=== PATIENT | female | born 1945 | race Two or more races ===

== ENCOUNTER 2017-12-04 20:02 | Inpatient (IN) | payer MEDICARE, OTHER ==
[~2017-12-04] VITALS: Ht 154.9 cm; Wt 97.7 kg
[2017-12-04] MEDS ORDERED: UNOBMED (20:24)
[2017-12-04] MEDS ORDERED: Sodium Chloride 500ML 500 ML IV ONE (21:15)
[2017-12-04] MEDS ORDERED: Azithromycin 500 MG in NS 275 ML IV ONE (21:15)
[2017-12-04 22:00] VITALS: BP 136/60
[2017-12-04] MEDS ORDERED: Albuterol/Ipratropium 3ml neb HHN ONE (22:00)
[2017-12-04 23:00] VITALS: BP 140/68
[2017-12-04 23:00] LABS: HEMATOCRIT 40.7 % (37.0-47.0); HEMOGLOBIN 13.4 G/DL (12.0-16.0); MEAN CORPUSCULAR VOLUME 87 FL (80-99); PLATELET COUNT 238 K/UL (150-450); RED BLOOD COUNT 4.67 M/UL (4.20-5.40); RED CELL DISTRIBUTION WIDTH 12.3 % (11.6-14.8); WHITE BLOOD COUNT 15.5 K/UL (4.8-10.8)
[2017-12-04 23:08] LABS: ANION GAP 6 mmol/L (5-15); BLOOD UREA NITROGEN 20 mg/dL (7-18); CALCIUM 8.9 MG/DL (8.5-10.1); CARBON DIOXIDE 26 MMOL/L (21-32); CHLORIDE 101 MMOL/L (98-107); SODIUM 133 MMOL/L (136-145)
[2017-12-04 23:19] LABS: ALANINE AMINOTRANSFERASE 32 U/L (12-78); ALBUMIN 3.6 G/DL (3.4-5.0); ALBUMIN/GLOBULIN RATIO 0.8 (1.0-2.7); ALKALINE PHOSPHATASE 85 U/L (46-116); ASPARTATE AMINO TRANSFERASE 22 U/L (15-37); BILIRUBIN,TOTAL 0.5 MG/DL (0.2-1.0)
[2017-12-04] MEDS ORDERED: Ampicillin/Sulbactam Sod 3 GM in NS 110 ML IVPB ONE (23:30)
--- NOTE | 2017-12-04 23:36 | Emergency Room Report ---
History of Present Illness General Chief Complaint: Difficulty breathing Source: Patient Present Illness HPI Patient is a 72-year-old female who presented after increased fever and chills. The patient reported having increased productive cough. Patient has a relative in the hospital currently with pneumonia. The patient states she been having increased sore throat. She had been having productive cough with the produced productive of yellow sputum. The patient not been having any hemoptysis. The patient about denied vomiting or diarrhea. She had prior history of bronchitis. Patient is not a smoker. Allergies: Coded Allergies: No Known Allergies (Unverified , 12/04/17) Patient History Past Medical History: see triage record Last Menstrual Period: NA Reviewed Nursing Documentation: PMH: Agreed; PSxH: Agreed Nursing Documentation-PMH Hx Hypertension: Yes - hyperlipidemia Hx Diabetes: Yes Review of Systems All Other Systems: negative except mentioned in HPI Physical Exam Vital Signs Date Time Temp Pulse Resp B/P (MAP) Pulse Ox O2 Delivery O2 Flow Rate FiO2 12/04/17 20:19 101.2 110 18 114/60 98 Room Air 101.1 12/04/17 22:00 3.0 12/04/17 22:12 21 Sp02 EP Interpretation: reviewed, normal General Appearance: alert, obese, Chronically Ill Head: atraumatic ENT: normal ENT inspection, hearing grossly normal, normal voice Neck: normal inspection, supple, no bony tend, limited range of motion Respiratory: normal inspection, no retraction, rhonchi, wheezing Cardiovascular #1: no edema, tachycardia Gastrointestinal: normal inspection, normal bowel sounds, non tender, soft, no guarding, no hernia Genitourinary: no CVA tenderness Musculoskeletal: normal inspection, back normal, normal range of motion Neurologic: normal inspection, alert, oriented x3, responsive, administrative operations coordinator III-XII nml as tested, speech normal Psychiatric: normal inspection, judgement/insight normal, mood/affect normal Skin: normal inspection, normal color, no rash Medical Decision Making Diagnostic Impression: Primary Impression: Pneumonia Additional Impression: Tachycardia ER Course Patient presented for cough . Differential diagnosis included but was not limited to acute coronary syndrome, pulmonary embolism, pneumonia, aortic dissection, shingles, pneumothorax, aortic dissection, esophageal rupture, pericarditis. Because of complexity of patient's case laboratory testing and imaging studies were ordered. The patient noted to have 102 fever as well as productive cough. This consistent with pneumonia. A chest x-ray one view interpreted by me showed the right middle lobe infiltrate. The patient noted not to be hypoxic however she have persistently tachycardic. The patient was given breathing treatment with some improvement in air movement. Dr. Jero Haider was contacted for inpatient management due to primary care physician. Labs Test 12/04/17 21:40 White Blood Count 15.5 K/UL (4.8-10.8) Red Blood Count 4.67 M/UL (4.20-5.40) Hemoglobin 13.4 G/DL (12.0-16.0) Hematocrit 40.7 % (37.0-47.0) Mean Corpuscular Volume 87 FL (80-99) Mean Corpuscular Hemoglobin 28.7 PG (27.0-31.0) Mean Corpuscular Hemoglobin Concent 32.9 G/DL (32.0-36.0) Red Cell Distribution Width 12.3 % (11.6-14.8) Platelet Count 238 K/UL (150-450) Mean Platelet Volume 6.6 FL (6.5-10.1) Neutrophils (%) (Auto) % (45.0-75.0) Lymphocytes (%) (Auto) % (20.0-45.0) Monocytes (%) (Auto) % (1.0-10.0) Eosinophils (%) (Auto) % (0.0-3.0) Basophils (%) (Auto) % (0.0-2.0) Sodium Level 133 MMOL/L (136-145) Potassium Level 4.0 MMOL/L (3.5-5.1) Chloride Level 101 MMOL/L (98-107) Carbon Dioxide Level 26 MMOL/L (21-32) Anion Gap 6 mmol/L (5-15) Blood Urea Nitrogen 20 mg/dL (7-18) Creatinine 1.0 MG/DL (0.55-1.30) Estimat Glomerular Filtration Rate 54.8 mL/min (>60) Glucose Level 257 MG/DL (74-106) Calcium Level 8.9 MG/DL (8.5-10.1) Total Bilirubin 0.5 MG/DL (0.2-1.0) Aspartate Amino Transf (AST/SGOT) 22 U/L (15-37) Alanine Aminotransferase (ALT/SGPT) 32 U/L (12-78) Alkaline Phosphatase 85 U/L (46-116) Pro-B-Type Natriuretic Peptide 131 pg/mL (0-125) Total Protein 8.0 G/DL (6.4-8.2) Albumin 3.6 G/DL (3.4-5.0) Globulin 4.4 g/dL Albumin/Globulin Ratio 0.8 (1.0-2.7) EKG Diagnostic Results Rate: tachycardiac - 111 Rhythm: NSR ST Segments: no acute changes Rhythm Strip Diag. Results EP Interpretation: yes Rhythm: NSR - 102, no PVC's, no ectopy Last Vital Signs Date Time Temp Pulse Resp B/P (MAP) Pulse Ox O2 Delivery O2 Flow Rate FiO2 12/04/17 23:00 99.5 102 22 140/68 96 Room Air 3.0 21 99.5 Status: unchanged Disposition: ADMITTED INPATIENT Condition: Serious Referrals: Jero Haider MD (PCP) Michael Bruno MD Dec 04, 2017 23:36
[2017-12-05] VITALS: BP 136/68
[2017-12-05 01:00] VITALS: BP 128/70
[2017-12-05 01:45] VITALS: BP 122/51
[2017-12-05 04:00] VITALS: BP 131/72
[2017-12-05 05:26] LABS: APPEARANCE,URINE CLEAR; BILIRUBIN, URINE NEGATIVE (NEGATIVE); GLUCOSE, URINE (UA) 4+ (NEGATIVE); KETONES,URINE NEGATIVE (NEGATIVE); LEUKOCYTE ESTERASE ,URINE NEGATIVE (NEGATIVE); NITRITE,URINE NEGATIVE (NEGATIVE); PH,URINE 5 (4.5-8.0); PROTEIN,URINE 1+ (NEGATIVE); UROBILINOGEN,URINE NORMAL MG/DL (0.0-1.0)
[2017-12-05 05:59] LABS: COLOR,URINE YELLOW
[2017-12-05] MEDS: NovoLOG Insulin Flexpen SUBQ SCH ×4 (06:04→20:42)
[2017-12-05 07:42] LABS: BASOPHILS % (AUTO) 0.3 % (0.0-2.0); EOSINOPHILS % (AUTO) 0.2 % (0.0-3.0); HEMOGLOBIN 12.1 G/DL (12.0-16.0); LYMPHOCYTES % (AUTO) 9.9 % (20.0-45.0); MEAN CORPUSCULAR VOLUME 89 FL (80-99); MONOCYTES % (AUTO) 6.3 % (1.0-10.0); NEUTROPHILS % (AUTO) 83.4 % (45.0-75.0); PLATELET COUNT 239 K/UL (150-450); RED BLOOD COUNT 4.16 M/UL (4.20-5.40); RED CELL DISTRIBUTION WIDTH 11.8 % (11.6-14.8); WHITE BLOOD COUNT 12.5 K/UL (4.8-10.8)
[2017-12-05 08:22] LABS: ALANINE AMINOTRANSFERASE 27 U/L (12-78); ALBUMIN 2.9 G/DL (3.4-5.0); ALBUMIN/GLOBULIN RATIO 0.7 (1.0-2.7); ALKALINE PHOSPHATASE 69 U/L (46-116); ANION GAP 8 mmol/L (5-15); ASPARTATE AMINO TRANSFERASE 16 U/L (15-37); BILIRUBIN,TOTAL 0.6 MG/DL (0.2-1.0); BLOOD UREA NITROGEN 18 mg/dL (7-18); CALCIUM 8.2 MG/DL (8.5-10.1); CARBON DIOXIDE 29 MMOL/L (21-32); CHLORIDE 104 MMOL/L (98-107); CREATININE 0.9 MG/DL (0.55-1.30); POTASSIUM 3.7 MMOL/L (3.5-5.1); SODIUM 140 MMOL/L (136-145)
--- NOTE | 2017-12-05 09:47 | Consultation ---
Consult Note Assessment/Plan DICT # [id number] Matias Mccray MD Dec 05, 2017 09:47
[2017-12-05] MEDS: Heparin 5000 units/ml inj SUBQ SCH ×2 (10:01→20:41)
[2017-12-05] MEDS ORDERED: guaiFENesin 100mg/5ml Liq ud ORAL PRN (10:30)
--- NOTE | 2017-12-05 11:37 | Diagnostic Imaging Report ---
Indication: Dyspnea Comparison: None A single view chest radiograph was obtained. Findings: Lung volumes are low. There is atelectasis at the left lung base. Heart size is normal. The bones are slightly osteopenic. IMPRESSION: Limited study due to low lung volumes. Left basal atelectasis
[2017-12-05] MEDS ORDERED: FOLIC ACID0.4 MG ORAL (13:22)
[2017-12-05] MEDS ORDERED: NORVASC5 MG ORAL (13:23)
[2017-12-05] MEDS ORDERED: VITAMIN D250000 UNI1 ORAL (13:26)
[2017-12-05] MEDS ORDERED: AMARYL2 MG ORAL (13:30)
[2017-12-05] MEDS ORDERED: FUROSEMIDE40 MG/5 ML ORAL (13:31)
[2017-12-05] MEDS ORDERED: METFORMIN HCL750 MG ORAL (13:32)
[2017-12-05] MEDS ORDERED: METOPROLOL SUCC50 MG ORAL (13:35)
[2017-12-05] MEDS ORDERED: ASPIR 8181 MG ORAL (13:35)
[2017-12-05] MEDS ORDERED: K-DUR10 ME1 ORAL (13:36)
[2017-12-05] MEDS ORDERED: SIMVASTATIN40 MG ORAL (13:37)
[2017-12-05] MEDS ORDERED: FUROSEMIDE20 M1 ORAL (13:47)
[2017-12-05] MEDS ORDERED: Aspirin Baby 81mg ORAL SCH (15:00)
[2017-12-05] MEDS ORDERED: Metoprolol Succinate XL 50mg tab ORAL SCH (15:00)
--- NOTE | 2017-12-05 17:30 | Consultation ---
DATE OF CONSULTATION: 12/05/2017 PULMONARY CONSULTATION CONSULTING PHYSICIAN: Matias Mccray M.D. REFERRING PHYSICIAN: Jero Haider M.D. REASON FOR CONSULTATION: Pneumonia. HISTORY OF PRESENT ILLNESS: The patient is a 72-year-old female with a history of morbid obesity, severe YOMI, congestive heart failure, diastolic dysfunction, left renal cell carcinoma status post nephrectomy, diabetes, hypertension, hyperlipidemia, gastroesophageal reflux disease, and a questionable history of sick sinus syndrome, last seen by me in the office in 2015, who presented overnight to the ER with cough, congestion, and shortness of breath. She has a relative, who has recently been sick. The patient's chest x-ray, which is not available to me, showed a right middle lobe infiltrate and she had a temperature of 102. She was not febrile. She was started on antibiotics and admitted for further management and evaluation. She currently feels well except for her cough. She is less short of breath. Denies any fevers, chills, headaches, or dizziness. She is currently receiving Levaquin and DuoNebs. She received a dose of azithromycin as well for a typicals. Of note, when I last saw her, I titrated her to a BiPAP of 22/15 for her YOMI, but she has not been using that. Her weight today is 97 kilos compared to 100 kilos 2 years ago in my office. PAST MEDICAL HISTORY: 1. Left renal cell carcinoma status post nephrectomy on 11/03/2015. 2. Congestive heart failure with diastolic dysfunction. 3. Diabetes. 4. Hypertension. 5. Hyperlipidemia. 6. GERD. 7. Morbid obesity. 8. Severe YOMI with AHI of 47, status post BiPAP titration of 22/15. 9. Sick sinus syndrome. MEDICATIONS: Prior to admission medications reviewed. Current medications reviewed. ALLERGIES: No known drug allergies. SOCIAL HISTORY: No tobacco, alcohol, or drug use. She has a supportive family. FAMILY HISTORY: Noncontributory. REVIEW OF SYSTEMS: Negative other than history of present illness. PHYSICAL EXAM: VITAL SIGNS: Temperature 99.6, pulse 102, blood pressure 122/51, respiratory rate 20, and saturating 96% on 3 liters. GENERAL: She is an obese female, in no acute distress. Awake, alert, and oriented x3. HEENT: Normocephalic and atraumatic. Oropharynx is clear with moist mucous membranes. NECK: Supple without lymphadenopathy or JVD. CHEST: Clear with scattered coarse breath sounds in right lower lung field. HEART: Regular rate and rhythm. ABDOMEN: Soft, nontender, and nondistended. EXTREMITIES: No cyanosis, clubbing, or edema. ANCILLARY DATA: White count 15.5 on presentation and 12.5 now, hemoglobin 12.1, and platelet count 239,000. Chemistry, sodium 140, potassium 3.7, chloride 104, bicarbonate 29, BUN 18, creatinine 0.9, glucose 170, and calcium 8.2. Total bilirubin 0.6. AST 16, ALT 27, and alkaline phosphatase 69. Urinalysis, 1+ protein, 4+ glucose, and 1+ blood. Chest x-ray per report, right middle lobe infiltrate. My previous records include a CT of the chest from 10/08/2015, which showed a large left renal mass. MRI from September 2015, which showed a large left renal mass compressing on the renal hilum. The last CT scan at [facility] from 06/10/2017 showed no evidence of metastases, stable post-operative changes. PFT's on 12/05/2015, FEV1-FVC ratio 80%, FEV1 1.35 (85%), FVC 1.69 (82%), TLC 3.40 (89%), vital capacity 1.94 (94%), DLCO 17 (91%), DLVA 5.65 (108%). Last PSG on 12/18/2015, severe YOMI with AHI of 47, status post BiPAP titration of . My last echo showed a hyperdynamic LVEF with a fraction of 72% and moderate diastolic dysfunction, wall motion score of 1, PA pressure of 31, and normal RV systolic function. ASSESSMENT: The patient is a 72-year-old morbidly obese patient with a history of severe obstructive sleep apnea with AHI of 47, status post BiPAP titration, noncompliant with BiPAP, congestive heart failure, left renal cell carcinoma, status post nephrectomy, diabetes, hypertension, hyperlipidemia, gastroesophageal reflux disease, and sick sinus syndrome, admitted with right middle lobe infiltrate, likely community-acquired pneumonia. PROBLEM LIST: 1. Right middle lobe infiltrate, likely community-acquired pneumonia. 2. Morbid obesity. 3. Severe obstructive sleep apnea with AHI of 47, status post BiPAP titration of in 2015, noncompliant with . 4. Congestive heart failure with diastolic dysfunction without evidence of decompensated heart failure. 5. Left renal cell carcinoma status post nephrectomy on 11/03/2015. 6. Diabetes. 7. Hypertension. 8. Hyperlipidemia. 9. Gastroesophageal reflux disease. 10. Sick sinus syndrome. TREATMENT PLAN: 1. Optimize pulmonary hygiene/mobilize as tolerated. 2. Titrate down FiO2 to keep saturations greater than 90%. 3. We will start patient on BiPAP for nightly use here in the hospital and we will encourage compliance going forward at home. 4. Agree with Levaquin for empiric treatment of community-acquired pneumonia. 5. Mdulv-urc-loqrc and p.r.n. bronchodilators. 6. Mucinex and p.r.n. Robitussin. 7. Heparin subcutaneous for DVT prophylaxis. 8. Monitor volumes. 9. Continue to encourage weight loss, diet, and exercise. Dr. Haider, thank you for allowing me to assist in the care of your patient. If I may be of any assistance in the future, please do not hesitate to ask. Matias Mccray M.D. DR: NADIA JOB#: [id number] CC:
[2017-12-05] MEDS: guaiFENesin ER 600mg tab ORAL SCH (19:11)
[2017-12-05 20:00] VITALS: BP 133/49
[2017-12-05] MEDS: Atorvastatin 20mg tab ORAL SCH (20:40)
--- NOTE | 2017-12-05 22:28 | History and Physical ---
History of Present Illness General Date patient seen: Dec 05, 2017 Time patient seen: 22:25 Reason for Hospitalization: COUGH, FEVER , TACHYCARDIA Present Illness HPI LEI IS AN UNFORTUANTE FEMALE IWTH DIABETES, HYPERTENISONA DN COUGH Allergies: Coded Allergies: No Known Allergies (Unverified , 12/04/17) Medication History Scheduled Amlodipine Besylate (Norvasc), 5 MG ORAL DAILY, (Reported) Aspirin* (Aspir 81*), 81 MG ORAL DAILY, (Reported) Ergocalciferol (Vitamin D2)* (Vitamin D*), 50,000 UNIT ORAL ONCE A WEEK, ( Reported) Folic Acid (Folic Acid), 1 MG ORAL DAILY, (Reported) Furosemide* (Lasix*), 20 MG ORAL DAILY, (Reported) Glimepiride (Amaryl), 4 MG ORAL BEFORE BREAKFAST, (Reported) Metformin Hcl (Metformin Hcl Er), 750 MG ORAL DAILY, (Reported) Metoprolol Succinate* (Metoprolol Succinate*), 50 MG ORAL DAILY, (Reported) Potassium Chloride (Klor-Con 10), 10 MEQ ORAL DAILY, (Reported) Simvastatin (Zocor), 40 MG ORAL BEDTIME, (Reported) Miscellaneous Medications Unable to Obtain Medications (Unable To Obtain Meds), (Reported) Patient History History Provided By: Patient Healthcare decision maker Resuscitation status Full Code Advanced Directive on File No Review of Systems ROS Narrative HAD FEVER NAD CHILLS WAS NOT FEELING GOOD pmh: dIABETES HYPERTENSION HYPERLIPID OBESE OA KNEE DEG DISC DISEASE RENAL CELL CA psh: p[artial nephrectomy knee replacemnt Physical Exam General Appearance: WD/WN HEENT: normocephalic, no JVD Neck: non-tender Respiratory/Chest: other - rhonchi Cardiovascular/Chest: normal rate, regular rhythm Abdomen: non tender, soft Extremities: other - no clubbing Last 24 Hour Vital Signs Date Time Temp Pulse Resp B/P (MAP) Pulse Ox O2 Delivery O2 Flow Rate FiO2 12/05/17 22:02 88 16 90 12/05/17 20:00 98.4 67 18 133/49 (77) 92 98.4 12/05/17 19:25 85 18 Room Air 21 12/05/17 16:00 68 12/05/17 15:41 68 158/68 12/05/17 15:40 68 154/68 12/05/17 12:00 68 12/05/17 09:00 Room Air 12/05/17 08:00 65 12/05/17 04:00 98.0 86 22 131/72 (91) 98 98.0 12/05/17 04:00 66 12/05/17 02:29 Room Air 12/05/17 02:00 87 12/05/17 01:45 99.1 78 20 122/51 (74) 96 99.1 12/05/17 01:25 99.5 102 22 140/68 96 Room Air 3.0 21 99.5 12/05/17 01:00 99.6 93 22 128/70 96 Room Air 3.0 21 99.6 12/05/17 00:00 99.6 95 22 136/68 96 Room Air 3.0 21 99.6 12/04/17 23:55 99.5 12/04/17 23:00 99.5 102 22 140/68 96 Room Air 3.0 21 99.5 Intake and Output 12/04/17 12/05/17 19:00 07:00 Intake Total 240 ml Balance 240 ml Intake Oral 240 ml # Voids 2 Laboratory Tests Test 12/05/17 07:05 White Blood Count 12.5 K/UL (4.8-10.8) H Red Blood Count 4.16 M/UL (4.20-5.40) L Hemoglobin 12.1 G/DL (12.0-16.0) Hematocrit 37.0 % (37.0-47.0) Mean Corpuscular Volume 89 FL (80-99) Mean Corpuscular Hemoglobin 29.0 PG (27.0-31.0) Mean Corpuscular Hemoglobin Concent 32.7 G/DL (32.0-36.0) Red Cell Distribution Width 11.8 % (11.6-14.8) Platelet Count 239 K/UL (150-450) Mean Platelet Volume 6.9 FL (6.5-10.1) Neutrophils (%) (Auto) 83.4 % (45.0-75.0) H Lymphocytes (%) (Auto) 9.9 % (20.0-45.0) L Monocytes (%) (Auto) 6.3 % (1.0-10.0) Eosinophils (%) (Auto) 0.2 % (0.0-3.0) Basophils (%) (Auto) 0.3 % (0.0-2.0) Sodium Level 140 MMOL/L (136-145) Potassium Level 3.7 MMOL/L (3.5-5.1) Chloride Level 104 MMOL/L (98-107) Carbon Dioxide Level 29 MMOL/L (21-32) Anion Gap 8 mmol/L (5-15) Blood Urea Nitrogen 18 mg/dL (7-18) Creatinine 0.9 MG/DL (0.55-1.30) Estimat Glomerular Filtration Rate > 60 mL/min (>60) Glucose Level 170 MG/DL (74-106) H Calcium Level 8.2 MG/DL (8.5-10.1) L Total Bilirubin 0.6 MG/DL (0.2-1.0) Aspartate Amino Transf (AST/SGOT) 16 U/L (15-37) Alanine Aminotransferase (ALT/SGPT) 27 U/L (12-78) Alkaline Phosphatase 69 U/L (46-116) Total Protein 6.9 G/DL (6.4-8.2) Albumin 2.9 G/DL (3.4-5.0) L Globulin 4.0 g/dL Albumin/Globulin Ratio 0.7 (1.0-2.7) L Height (Feet): 5 Height (Inches): 1.00 Weight (Pounds): 211 Medications Current Medications Medications (Trade) Dose Ordered Sig/Walter Route PRN Reason Start Time Stop Time Status Last Admin Dose Admin Amlodipine Besylate (Norvasc) 5 mg DAILY ORAL 12/06/17 09:00 01/05/18 08:59 Aspirin (ASA) 81 mg DAILY ORAL 12/06/17 09:00 01/05/18 08:59 Atorvastatin Calcium (Lipitor) 20 mg QHS ORAL 12/05/17 21:00 01/04/18 20:59 12/05/17 20:40 Dextrose (Dextrose 50%) 25 ml STAT PRN IV Hypoglycemia 12/05/17 02:15 01/04/18 02:14 Dextrose (Dextrose 50%) 50 ml STAT PRN IV Hypoglycemia 12/05/17 02:15 01/04/18 02:14 Furosemide (Lasix) 20 mg DAILY ORAL 12/08/17 09:00 8/11/18 08:59 Glimepiride (Amaryl) 4 mg ACBREAKFAST ORAL 12/06/17 06:30 01/05/18 06:29 Guaifenesin (Mucinex ER) 600 mg TWICE A DAY ORAL 12/05/17 18:00 01/04/18 17:59 12/05/17 19:11 Guaifenesin (Robitussin) 100 mg Q4H PRN ORAL For Cough 12/05/17 10:30 01/04/18 10:29 Heparin Sodium (Porcine) (Heparin 5000 units/ml) 5,000 units EVERY 12 HOURS SUBQ 12/05/17 09:00 01/04/18 08:59 12/05/17 20:41 Insulin Aspart (NovoLOG) BEFORE MEALS AND HS SUBQ 12/05/17 06:30 01/04/18 06:29 12/05/17 20:42 Levofloxacin 50 ml @ 50 mls/hr Q24H IVPB 12/06/17 04:00 12/12/17 03:59 Metformin HCl (Glucophage) 750 mg TIAC ORAL 12/06/17 06:30 01/05/18 06:29 Metoprolol Succinate (Toprol XL) 50 mg DAILY ORAL 12/06/17 09:00 01/05/18 08:59 Potassium Chloride (K-Dur) 10 meq DAILY ORAL 12/08/17 09:00 01/07/18 08:59 Assessment/Plan Status Narrative CAP HYPERTENISOIN DIABETES HISTORYOF RENAL CELL CA PROTIEN MALNUTRITION OBESITY TACHYCARIDA Assessment/Plan ADMIT IV FLUID IV ANTIBIOTIC ACCUCHECK SLIDING SCALE MONITOR BP AND BLOOD GLUCOSE, Jero Haider MD Dec 05, 2017 22:28
[2017-12-06] VITALS: BP 135/53
[2017-12-06 04:00] VITALS: BP 110/48
[2017-12-06] MEDS: Levofloxacin 250mg/D5W 50ml IVPB SCH (04:10)
[2017-12-06] MEDS: Glimepiride 4mg tab ORAL SCH (05:59)
[2017-12-06] MEDS: metFORMIN 500mg tab ORAL SCH ×3 (06:00→15:51)
[2017-12-06] MEDS: NovoLOG Insulin Flexpen SUBQ SCH ×4 (06:01→20:43)
[2017-12-06 07:41] LABS: BASOPHILS % (AUTO) 0.4 % (0.0-2.0); EOSINOPHILS % (AUTO) 2.8 % (0.0-3.0); HEMATOCRIT 37.6 % (37.0-47.0); HEMOGLOBIN 12.4 G/DL (12.0-16.0); LYMPHOCYTES % (AUTO) 16.7 % (20.0-45.0); MEAN CORPUSCULAR VOLUME 89 FL (80-99); NEUTROPHILS % (AUTO) 73.1 % (45.0-75.0); PLATELET COUNT 245 K/UL (150-450); RED BLOOD COUNT 4.25 M/UL (4.20-5.40); RED CELL DISTRIBUTION WIDTH 11.8 % (11.6-14.8); WHITE BLOOD COUNT 6.7 K/UL (4.8-10.8)
[2017-12-06 08:00] VITALS: BP 101/41
--- NOTE | 2017-12-06 08:40 | Physician Query ---
--------- THIS DOCUMENT IS A PERMANENT PART OF THE MEDICAL RECORD --------- PLEASE COMPLETE THE DOCUMENT BEFORE SIGNING Dear Dr. Haider Date: 2017 Personal Driver/CDS Name: Gibran hudson Personal Driver/CDS Phone No.:[phone] Exercise your independent professional judgment when responding to query. Question asked do not imply a particular answer is desired/expected Clinical Documentation States: Patient admitted with Pneumonia. Clinical Findings Show: WBC: 15.5, Temperature: 101.2, HR: 110, RR: 22 Antibiotics: Levofloxacin Please clarify the diagnosis for above findings: [ ] Sepsis [ ] Sepsis with organ dysfunction [ ] SIRS [ ] SIRS with organ dysfunction [ ] Septic Shock [ ] Other: [ ] Clinically Undeterminable Was SEPSIS present on admission? [] Yes [] No [] Clinically undeterminable Criteria for Sepsis* Sepsis: Presence of 1 or more criteria in this row. Positive cultures (but not required) or WBCs present in otherwise sterile fluid: blood, urine, sputum, CSF , etc.? Prescribed anti-infective therapy: antibiotic, antifungal, and other? Documentation of pneumonia: positive x-ray or clinical presentation? Perforated viscus: perforation of a hollow organ, e.g. bowel? SIRS: Presence of > 2 criteria in this row Temperature: > 100.4 F. or < 96.8 F. Heart rate: > 90 bpm Respiratory rate: > 20/min. WBC count: > 12,000/mm2 < 4,000/mm2 > 10% bands MTDD
[2017-12-06 08:56] LABS: ALANINE AMINOTRANSFERASE 27 U/L (12-78); ALBUMIN 2.9 G/DL (3.4-5.0); ALBUMIN/GLOBULIN RATIO 0.7 (1.0-2.7); ALKALINE PHOSPHATASE 68 U/L (46-116); ANION GAP 4 mmol/L (5-15); ASPARTATE AMINO TRANSFERASE 12 U/L (15-37); BILIRUBIN,TOTAL 0.4 MG/DL (0.2-1.0); BLOOD UREA NITROGEN 18 mg/dL (7-18); CALCIUM 8.5 MG/DL (8.5-10.1); CARBON DIOXIDE 29 MMOL/L (21-32); CHLORIDE 106 MMOL/L (98-107); SODIUM 139 MMOL/L (136-145)
[2017-12-06] MEDS: Aspirin Baby 81mg ORAL SCH (09:04)
[2017-12-06] MEDS: guaiFENesin ER 600mg tab ORAL SCH ×2 (09:05→18:09)
[2017-12-06] MEDS: Metoprolol Succinate XL 50mg tab ORAL SCH (09:05)
[2017-12-06] MEDS: Heparin 5000 units/ml inj SUBQ SCH ×2 (09:09→20:42)
[2017-12-06 12:00] VITALS: BP 116/69
[2017-12-06 16:00] VITALS: BP 108/60
[2017-12-06 20:00] VITALS: BP 109/50
[2017-12-06] MEDS: Atorvastatin 20mg tab ORAL SCH (21:24)
--- NOTE | 2017-12-06 22:17 | Pulmonology Progress Note ---
Assessment/Plan Problems: (1) Pneumonia (2) Tachycardia Assessment/Plan ASSESSMENT: The patient is a 72-year-old morbidly obese patient with a history of severe obstructive sleep apnea with AHI of 47, status post BiPAP titration, noncompliant with BiPAP, congestive heart failure, left renal cell carcinoma, status post nephrectomy, diabetes, hypertension, hyperlipidemia, gastroesophageal reflux disease, and sick sinus syndrome, admitted with right middle lobe infiltrate, likely community-acquired pneumonia. PROBLEM LIST: 1. Right middle lobe infiltrate, likely community-acquired pneumonia. 2. Morbid obesity. 3. Severe obstructive sleep apnea with AHI of 47, status post BiPAP titration of in 2016, noncompliant wit NIPPV. 4. Congestive heart failure with diastolic dysfunction without evidence of decompensated heart failure. 5. Left renal cell carcinoma status post nephrectomy on 11/03/2015. 6. Diabetes. 7. Hypertension. 8. Hyperlipidemia. 9. Gastroesophageal reflux disease. 10. Sick sinus syndrome. TREATMENT PLAN: 1. Optimize pulmonary hygiene/mobilize as tolerated. 2. Titrate down FiO2 to keep saturations greater than 90%. 3. Encourage compliance with BiPAP qHS and PRN 4. Levaquin (D2) 5. Krffw-mpo-boray and p.r.n. bronchodilators. 6. Mucinex and p.r.n. Robitussin. 7. Heparin subcutaneous for DVT prophylaxis. 8. Monitor volumes. 9. Continue to encourage weight loss, diet, and exercise. Subjective Allergies: Coded Allergies: No Known Allergies (Unverified , 12/04/17) Subjective Refused BiPAP AFVSS, O2 needs stable Less cough, less SOB, no F/C Objective Last 24 Hour Vital Signs Date Time Temp Pulse Resp B/P (MAP) Pulse Ox O2 Delivery O2 Flow Rate FiO2 12/06/17 21:00 Nasal Cannula 2.0 12/06/17 20:00 63 12/06/17 16:00 59 12/06/17 16:00 98.0 63 20 108/60 (76) 96 98.0 12/06/17 12:00 99.7 72 17 116/69 (85) 96 99.7 12/06/17 12:00 55 12/06/17 09:05 65 101/41 12/06/17 09:05 65 101/41 12/06/17 09:02 95 Nasal Cannula 2.0 28 12/06/17 09:02 Nasal Cannula 2.0 28 12/06/17 09:00 Nasal Cannula 2.0 12/06/17 08:00 98.4 65 17 101/41 (61) 93 98.4 12/06/17 08:00 63 12/06/17 07:45 67 18 Nasal Cannula 2.0 28 12/06/17 05:35 66 16 95 12/06/17 04:00 63 12/06/17 04:00 98.7 66 17 110/48 (68) 95 98.7 12/06/17 03:40 79 18 95 12/06/17 01:50 82 18 95 12/06/17 00:00 98.2 71 17 135/53 (80) 95 98.2 12/06/17 00:00 61 12/05/17 23:08 78 16 96 Intake and Output 12/05/17 12/06/17 19:00 07:00 Intake Total 360 ml 360 ml Balance 360 ml 360 ml Intake Oral 360 ml 360 ml # Voids 3 2 # Bowel Movements 2 General Appearance: WD/WN, no acute distress, other - obese female HEENT: normocephalic, atraumatic, anicteric, mucous membranes moist Respiratory/Chest: chest wall non-tender, lungs clear, normal breath sounds, no respiratory distress Cardiovascular: normal peripheral pulses, normal rate, regular rhythm Abdomen: normal bowel sounds, soft, non tender, no organomegaly Extremities: no cyanosis, no clubbing, no edema Microbiology Date/Time Source Procedure Growth Status 12/04/17 22:00 Blood Blood Culture - Preliminary NO GROWTH AFTER 24 HOURS Resulted 12/04/17 21:40 Blood Blood Culture - Preliminary NO GROWTH AFTER 24 HOURS Resulted Laboratory Tests 12/06/17 06:15: White Blood Count 6.7, Red Blood Count 4.25, Hemoglobin 12.4, Hematocrit 37.6, Mean Corpuscular Volume 89, Mean Corpuscular Hemoglobin 29.1, Mean Corpuscular Hemoglobin Concent 32.9, Red Cell Distribution Width 11.8, Platelet Count 245, Mean Platelet Volume 7.2, Neutrophils (%) (Auto) 73.1, Lymphocytes (%) (Auto) 16.7L, Monocytes (%) (Auto) 7.0, Eosinophils (%) (Auto) 2.8, Basophils (%) (Auto ) 0.4, Sodium Level 139, Potassium Level 4.0, Chloride Level 106, Carbon Dioxide Level 29, Anion Gap 4L, Blood Urea Nitrogen 18, Creatinine 1.0, Estimat Glomerular Filtration Rate 54.8, Glucose Level 165H, Calcium Level 8.5, Total Bilirubin 0.4, Aspartate Amino Transf (AST/SGOT) 12L, Alanine Aminotransferase ( ALT/SGPT) 27, Alkaline Phosphatase 68, Total Protein 7.0, Albumin 2.9L, Globulin 4.1, Albumin/Globulin Ratio 0.7L Current Medications Medications (Trade) Dose Ordered Sig/Walter Route PRN Reason Start Time Stop Time Status Last Admin Dose Admin Amlodipine Besylate (Norvasc) 5 mg DAILY ORAL 12/06/17 09:00 01/05/18 08:59 12/06/17 09:05 Aspirin (ASA) 81 mg DAILY ORAL 12/06/17 09:00 01/05/18 08:59 12/06/17 09:04 Atorvastatin Calcium (Lipitor) 20 mg QHS ORAL 12/05/17 21:00 01/04/18 20:59 12/06/17 21:24 Dextrose (Dextrose 50%) 25 ml STAT PRN IV Hypoglycemia 12/05/17 02:15 01/04/18 02:14 Dextrose (Dextrose 50%) 50 ml STAT PRN IV Hypoglycemia 12/05/17 02:15 01/04/18 02:14 Furosemide (Lasix) 20 mg DAILY ORAL 12/08/17 09:00 01/07/18 08:59 Glimepiride (Amaryl) 4 mg ACBREAKFAST ORAL 12/06/17 06:30 01/05/18 06:29 12/06/17 05:59 Guaifenesin (Mucinex ER) 600 mg TWICE A DAY ORAL 12/05/17 18:00 01/04/18 17:59 12/06/17 18:09 Guaifenesin (Robitussin) 100 mg Q4H PRN ORAL For Cough 12/05/17 10:30 01/04/18 10:29 Heparin Sodium (Porcine) (Heparin 5000 units/ml) 5,000 units EVERY 12 HOURS SUBQ 12/05/17 09:00 01/04/18 08:59 12/06/17 20:42 Insulin Aspart (NovoLOG) BEFORE MEALS AND HS SUBQ 12/05/17 06:30 01/04/18 06:29 12/06/17 20:43 Levofloxacin 50 ml @ 50 mls/hr Q24H IVPB 12/06/17 04:00 12/12/17 03:59 12/06/17 04:10 Metformin HCl (Glucophage) 750 mg TIAC ORAL 12/06/17 06:30 01/05/18 06:29 12/06/17 15:51 Metoprolol Succinate (Toprol XL) 50 mg DAILY ORAL 12/06/17 09:00 01/05/18 08:59 12/06/17 09:05 Potassium Chloride (K-Dur) 10 meq DAILY ORAL 12/08/17 09:00 01/07/18 08:59 Matias Mccray MD Dec 06, 2017 22:17
[2017-12-07] VITALS: BP 114/52
[2017-12-07] MEDS: Levofloxacin 250mg/D5W 50ml IVPB SCH (03:45)
[2017-12-07 04:00] VITALS: BP 126/52
[2017-12-07] MEDS: Glimepiride 4mg tab ORAL SCH (06:20)
[2017-12-07] MEDS: metFORMIN 500mg tab ORAL SCH ×3 (06:21→17:01)
[2017-12-07] MEDS: NovoLOG Insulin Flexpen SUBQ SCH ×3 (06:22→16:53)
[2017-12-07 08:00] VITALS: BP 124/71
[2017-12-07 08:54] LABS: BASOPHILS % (AUTO) 0.6 % (0.0-2.0); HEMATOCRIT 39.2 % (37.0-47.0); HEMOGLOBIN 12.6 G/DL (12.0-16.0); LYMPHOCYTES % (AUTO) 19.8 % (20.0-45.0); MEAN CORPUSCULAR VOLUME 89 FL (80-99); MONOCYTES % (AUTO) 5.1 % (1.0-10.0); NEUTROPHILS % (AUTO) 70.6 % (45.0-75.0); PLATELET COUNT 262 K/UL (150-450); RED BLOOD COUNT 4.39 M/UL (4.20-5.40); WHITE BLOOD COUNT 5.7 K/UL (4.8-10.8)
[2017-12-07] MEDS: Aspirin Baby 81mg ORAL SCH (09:02)
[2017-12-07] MEDS: guaiFENesin ER 600mg tab ORAL SCH ×2 (09:03→17:01)
[2017-12-07] MEDS: Metoprolol Succinate XL 50mg tab ORAL SCH (09:03)
[2017-12-07] MEDS: Heparin 5000 units/ml inj SUBQ SCH (09:05)
[2017-12-07 09:28] LABS: ALANINE AMINOTRANSFERASE 29 U/L (12-78); ALBUMIN/GLOBULIN RATIO 0.7 (1.0-2.7); ALKALINE PHOSPHATASE 71 U/L (46-116); ANION GAP 8 mmol/L (5-15); ASPARTATE AMINO TRANSFERASE 20 U/L (15-37); BILIRUBIN,TOTAL 0.3 MG/DL (0.2-1.0); BLOOD UREA NITROGEN 21 mg/dL (7-18); CALCIUM 8.9 MG/DL (8.5-10.1); CARBON DIOXIDE 29 MMOL/L (21-32); CHLORIDE 104 MMOL/L (98-107); SODIUM 141 MMOL/L (136-145)
[2017-12-07 12:00] VITALS: BP 126/66
[2017-12-07 16:00] VITALS: BP 124/58
[2017-12-07] MEDS ORDERED: NS 275ml ONE (17:08)
[2017-12-07] MEDS ORDERED: Tubing IV Secondary IV ONE (17:08)
--- NOTE | 2017-12-07 20:07 | Discharge Summary ---
Discharge Summary Discharge Summary _ this is an unfortyuante female admmited with community aquired pneumonia Dte od discharge 12/07/2017 dischage diagnosis Community aquired pneumonia SIRS hyperteniosn diabets type 2 hyperlipid renal cell cancer patient was admmited to hospital with tachycardia, elevated white coune consistent with SIRs and pneumonia was treated withantibiotic did better dc home and to have follo wup in [place] week. Jero Haider MD Dec 07, 2017 20:07
== END 2017-12-07 18:25 | disposition home or self-care (01) | DRG 194 ==
LOC: EDBD 20:02 → EMR 20:44 → 2E 23:05 → EDBEDREQ 12-05 00:32 → 2E 12-05 01:20
DX: J18.9 Pneumonia, unspecified organism (principal); I50.32 Chronic diastolic (congestive) heart failure; Z68.41 Body mass index [BMI] 40.0-44.9, adult; I11.0 Hypertensive heart disease with heart failure; G47.33 Obstructive sleep apnea (adult) (pediatric); E66.01 Morbid (severe) obesity due to excess calories; I10 Essential (primary) hypertension; E11.9 Type 2 diabetes mellitus without complications; Z85.53 Personal history of malignant neoplasm of renal pelvis; E78.5 Hyperlipidemia, unspecified; Z90.5 Acquired absence of kidney; K21.9 Gastro-esophageal reflux disease without esophagitis; I49.5 Sick sinus syndrome; M17.10 Unilateral primary osteoarthritis, unspecified knee
CPT/HCPCS: 36415; 71045; 80053; 81003; 82962; 83880; 85007; 85025; 87040; 93005; 94640; 94664; 94760; 99285; J1815; J7620